=== PATIENT | female | born 1960 | race American Indian/Alaskan Native ===

== ENCOUNTER → 2017-01-08 | Outpatient (CLI) | payer BC, OTHER | LOC: MW.CHPM 14:14 | PROVIDERS: ATTEND Anesthesiology | DX: Z51.81 Encounter for therapeutic drug level monitoring (principal); Z79.891 Long term (current) use of opiate analgesic | CPT/HCPCS: 80305 ==

== ENCOUNTER 2023-01-16 06:34 | Day surgery (SDC) | payer OTHER ==
[~2023-01-16 06:34] MED LIST: Lactated Ringers 1,000 ML IV SCH; Sodium Chloride 0.9% 10 ML Syringe FLUSH PRN; Sodium Chloride 0.9% 2.5 ML Syringe FLUSH PRN; Sodium Chloride 0.9% 20 ML SDV IV PRN
[2023-01-16] MEDS ORDERED: Bupivacaine 0.5% 30 ML SDV ONE (07:32)
[2023-01-16] MEDS ORDERED: Lidocaine 1% 20 ML MDV ONE (07:33)
[2023-01-16] MEDS ORDERED: Water For Injection, Sterile 20 ML ONE (07:35)
[2023-01-16] MEDS ORDERED: Dexmedetomidine 200 MCG/2 ML SDV ONE (07:35)
[2023-01-16] MEDS ORDERED: Ketorolac 30 MG/ML SDV ONE (07:37)
[2023-01-16] MEDS ORDERED: Ondansetron 4 MG/2 ML SDV ONE (07:37)
[2023-01-16] MEDS ORDERED: Lidocaine 2% 5 ML SDV ONE (07:37)
[2023-01-16] MEDS ORDERED: Lidocaine 2% 11 ML Jelly Filled Syringe ONE ×2 (07:37→07:38)
[2023-01-16] MEDS ORDERED: Propofol 200 MG/20 ML SDV ONE (07:38)
[2023-01-16] MEDS ORDERED: Ondansetron 4 MG/2 ML SDV IVPUSH PRN (07:48)
[2023-01-16] MEDS ORDERED: Albuterol 0.083% 2.5 MG/3 ML Neb Soln NEB PRN (07:48)
[2023-01-16] MEDS ORDERED: HYDROmorphone 1 MG/ML Syringe IVPUSH PRN (07:48)
[2023-01-16] MEDS ORDERED: Morphine 2 MG/ML SYRINGE IVPUSH PRN (07:48)
[2023-01-16] MEDS ORDERED: Naloxone 0.4 MG/ML SDV IVPUSH PRN (07:48)
[2023-01-16] MEDS ORDERED: fentaNYL 50 MCG/ML SDV IVPUSH PRN (07:48)
[2023-01-16 10:25] VITALS: BP 143/67; PULSE 65
== END 2023-01-16 10:10 | disposition home or self-care (01) ==
LOC: MW.SDS 06:34
PROVIDERS: ATTEND Surgery
DX: D12.7 Benign neoplasm of rectosigmoid junction (principal); D12.0 Benign neoplasm of cecum; D12.4 Benign neoplasm of descending colon; D12.5 Benign neoplasm of sigmoid colon; D12.3 Benign neoplasm of transverse colon; L72.0 Epidermal cyst; K57.30 Diverticulosis of large intestine without perforation or abscess without bleeding; L72.3 Sebaceous cyst; R19.4 Change in bowel habit; R10.30 Lower abdominal pain, unspecified; J30.9 Allergic rhinitis, unspecified; M54.16 Radiculopathy, lumbar region; I10 Essential (primary) hypertension; G47.00 Insomnia, unspecified; G43.909 Migraine, unspecified, not intractable, without status migrainosus; F41.0 Panic disorder [episodic paroxysmal anxiety]; F32.A Depression, unspecified; R73.03 Prediabetes; N83.8 Other noninflammatory disorders of ovary, fallopian tube and broad ligament; L98.9 Disorder of the skin and subcutaneous tissue, unspecified; E66.9 Obesity, unspecified; Z68.41 Body mass index [BMI] 40.0-44.9, adult; F17.210 Nicotine dependence, cigarettes, uncomplicated; Z88.6 Allergy status to analgesic agent; Z79.82 Long term (current) use of aspirin; Z79.899 Other long term (current) drug therapy; Z90.49 Acquired absence of other specified parts of digestive tract; Z86.16 Personal history of COVID-19; Z79.891 Long term (current) use of opiate analgesic
CPT/HCPCS: 11200; 11404; 45380; 45385; A9270; J2704; J3490; J7120; J1885; J2405